=== PATIENT | male | born 1970 | race African-American/Black ===

== ENCOUNTER 2017-02-05 16:50 | Emergency (ER) | payer MEDICARE ==
[~2017-02-05] VITALS: Ht 175.3 cm; Wt 117.9 kg
--- NOTE | 2017-02-05 16:53 | NUR ---
PT SELF PRESENTS TO ED: SOB x 3 DAYS. AMBULATORY. DENIES ANY PAIN. AWAITING MD ORDER
[2017-02-05] MEDS ORDERED: predniSONE 20 MG TABLET ONE (17:04)
[2017-02-05] MEDS ORDERED: IPRATROPIUM NEB FS 0.5 MG/2.5 ML AMPUL.NEB ONE (17:05)
[2017-02-05] MEDS ORDERED: ALBUTEROL FS 2.5 MG/3 ML VIAL.NEB ONE (17:05)
[2017-02-05] MEDS ORDERED: predniSONE 20 MG TABLET PO ONE (17:30)
[2017-02-05] MEDS ORDERED: ALBUTEROL FS 2.5 MG/3 ML VIAL.NEB CONTNEB ONE (17:30)
[2017-02-05] MEDS ORDERED: IPRATROPIUM NEB FS 0.5 MG/2.5 ML AMPUL.NEB NEB ONE (17:30)
--- NOTE | 2017-02-05 18:12 | NUR ---
Patient discharged to home in stable condition. Written and verbal after care instructions given. Patient verbalizes understanding of instruction.
[2017-02-05 18:14] VITALS: BP 124/80
== END 2017-02-05 18:15 | disposition home or self-care (01) ==
LOC: ER 16:55
DX: J45.901 Unspecified asthma with (acute) exacerbation (principal); Z90.89 Acquired absence of other organs; E66.9 Obesity, unspecified
CPT/HCPCS: 94644; 99285; A4606; J7512; Z7610

== ENCOUNTER 2020-12-13 08:50 | Inpatient (IN) | payer BC, MEDICARE ==
[~2020-12-13] VITALS: Ht 175.3 cm; Wt 125.3 kg
--- NOTE | 2020-12-13 08:50 | NUR ---
PT BIBRA 878 FROM HOME C/O BODY PAIN AND HEADACHE SINCE YESTERDAY. PT IS AAOX4, NOT IN RESPIRATORY DISTRESS, HOOKED TO [employer] SYSTEMS ENGINEER, KEPT RESTED AND COMFORTABLE. WILL CONTINUE TO MONITOR.
--- NOTE | 2020-12-13 09:14 | NUR ---
SEEN AND EXAMINED BY .
--- NOTE | 2020-12-13 09:15 | NUR ---
IV LINE ESTABLISHED BLOOD DRAWN AND SENT TO LAB.
--- NOTE | 2020-12-13 09:39 | NUR ---
URINE SPECIMEN COLLECTED AND SENT TO LAB.
[2020-12-13 09:50] LABS: BILIRUBIN,URINE NEGATIVE (NEGATIVE); COLOR,URINE YELLOW (YELLOW); LEUKOCYTE ESTERASE ,URINE NEGATIVE (NEGATIVE); NITRITE, URINE POSITIVE (NEGATIVE); PH,URINE 7.5 (5.0-8.0); PROTEIN,URINE TRACE mg/dl (NEGATIVE); UGLUCOSE NEGATIVE (NEGATIVE); UROBILINOGEN,URINE 0.2 EU/dL (0.2)
[2020-12-13 09:51] LABS: BASOPHILS # (AUTO) 0.2 /CMM (0.0-0.2); BASOPHILS % (AUTO) 2.2 % (0.0-2.0); EOSINOPHILS % (AUTO) 0.9 % (0.0-6.0); HEMATOCRIT 47 % (39-51); HEMOGLOBIN 15.4 g/dL (13.5-17.5); LYMPHOCYTES # (AUTO) 2.1 /CMM (0.8-4.8); LYMPHOCYTES % (AUTO) 27.2 % (20.0-44.0); MEAN CORPUSCULAR HGB CONC 33 g/dl (31.0-36.0); MEAN CORPUSCULAR VOLUME 91 fL (80-96); MONOCYTES # (AUTO) 0.6 /CMM (0.1-1.30); MONOCYTES % (AUTO) 7.5 % (2.0-12.0); NEUTROPHILS # (AUTO) 4.8 /CMM (1.8-8.9); NEUTROPHILS % (AUTO) 62.2 % (43.0-81.0); PLATELET COUNT (AUTO) 270 /CMM (150-450); RED BLOOD CELL COUNT(AUTO) 5.14 MIL/uL (4.5-6.0); WHITE BLOOD COUNT (AUTO) 7.8 K/uL (4.3-11.0)
[2020-12-13] MEDS ORDERED: MORPHINE SULFATE INJ 4 MG/ML DISP.SYRIN ONE (09:53)
[2020-12-13] MEDS ORDERED: ONDANSETRON HCL/PF 4 MG/2 ML VIAL ONE (09:53)
--- NOTE | 2020-12-13 09:55 | NUR ---
PT IS WHEELED TO CT SCAN VIA [facility].
[2020-12-13] MEDS ORDERED: MORPHINE SULFATE INJ 2 MG/ML DISP.SYRIN IV ONE (10:00)
[2020-12-13] MEDS ORDERED: ONDANSETRON HCL/PF - ER 4 MG/2 ML VIAL IV ONE (10:00)
[2020-12-13 10:03] LABS: CALCIUM, SERUM 9.1 mg/dL (8.5-10.1); CARBON DIOXIDE 27 mmol/L (21-32); CHLORIDE 103 mmol/L (98-107); CREATININE 1.2 mg/dL (0.6-1.3); GLUCOSE 119 mg/dL (74-106); SODIUM SERUM 140 mmol/L (136-145); UREA NITROGEN, BLOOD 12 mg/dL (7-18)
[2020-12-13 10:04] LABS: RBC,URINE NONE SEEN /HPF (0-2); WBC,URINE 0-2 /HPF (0-3)
[2020-12-13 10:06] LABS: BACTERIA,URINE Few /HPF (None Seen); SQUAMOUS EPITHELIAL CELL,UR Few /HPF (None Seen)
[2020-12-13 10:09] LABS: ALANINE AMINOTRANSFERASE 35 U/L (12-78); ALBUMIN 3.9 g/dL (3.4-5.0); ALKALINE PHOSPHATASE 55 U/L (46-116); ASPARTATE AMINOTRANSFERASE 25 U/L (15-37); BILIRUBIN,DIRECT 0.2 mg/dL (0.0-0.2); BILIRUBIN,TOTAL 1.4 mg/dL (0.2-1.0); TOTAL PROTEIN, SERUM 7.6 g/dL (6.4-8.2)
[2020-12-13] MEDS ORDERED: BUDE10.22 IH (10:18)
[2020-12-13] MEDS ORDERED: PRED10TA PO (10:18)
[2020-12-13] MEDS ORDERED: ALBUT2 CONTNEB (10:18)
--- NOTE | 2020-12-13 11:15 | NUR ---
LAB CALLED PT COVID NEGATIVE (-).
[2020-12-13] MEDS ORDERED: METOCLOPRAMIDE HCL 10 MG/2 ML VIAL IV ONE ×2 (13:00→18:30)
[2020-12-13] MEDS ORDERED: diphenhydrAMINE HCL 50 MG/ML VIAL IV ONE ×2 (13:00→18:30)
[2020-12-13] MEDS ORDERED: diphenhydrAMINE HCL 50 MG/ML VIAL ONE (13:09)
[2020-12-13] MEDS ORDERED: METOCLOPRAMIDE HCL 10 MG/2 ML VIAL ONE (13:09)
--- NOTE | 2020-12-13 14:00 | NUR ---
MS SULTANA NOTE RECEIVED REPORT FROM MACRINA Addendum: 12/13/20 at 1904 by BETH PINTO RN 1600*
--- NOTE | 2020-12-13 16:00 | NUR ---
REPORT GIVEN TO KAYY CAMPOS FOR STONE.
--- NOTE | 2020-12-13 17:20 | NUR ---
MS RN NOTE PATIENT WAS BROUGHT VIA GURNEY. A/O X4. AMBULATORY. PATIENT SHOWS SOB. PUT HIM ON NC AT 2 LPM FOR 02 SUPPORT. PATIENT HAS NAUSEA, VERBALIZING HEADACHE, LOW GRADE FEVER. ONE-TIME MEDS GIVEN PER DENTAL AIDE RADHA MAGUIRE. IV ACCESS ON L HAND 20 G, INTACT AND PATENT. PT'S INITIAL AND PHYSICAL ASSESSMENT DONE. SAFETY MEASURES MAINTAINED. BED IN LOWEST POSITION, BRKAES LOCKED SIDE RAILS UP X2. CALL LIGHT WITHIN REACH. WILL ENDORSE CONTINUITY OF CARE TO ONCOMING SHIFT. VS BP 111/65 R 98 R 18 T 100.3 A02 99%
[2020-12-13] MEDS ORDERED: ZOLPIDEM TARTRATE 5 MG TABLET PO PRN (18:30)
[2020-12-13] MEDS ORDERED: ALBUTEROL HALF STRENGTH 1.25 MG/3 ML VIAL.NEB NEB PRN (18:30)
[2020-12-13] MEDS ORDERED: KETOROLAC TROMETHAMINE INJ 30 MG/ML VIAL IV ONE (18:30)
[2020-12-13] MEDS ORDERED: HYDROCODONE/APAP 5/325MG TABLET PO PRN (18:30)
[2020-12-13] MEDS ORDERED: MAGNESIUM HYDROXIDE 30 ML UDC PO PRN (18:30)
[2020-12-13] MEDS ORDERED: ONDANSETRON HCL/PF 4 MG/2 ML VIAL IVP PRN (18:30)
[2020-12-13] MEDS: ACETAMINOPHEN 325 MG TABLET PO PRN (18:54)
--- NOTE | 2020-12-13 19:00 | NUR ---
RECEIVED IN BED ASLEEP HIGH FOWFABIO POSITION 02 2L RESP EVEN AND UNLABORED CALL LIGHT WITHIN HIS REACH WHEN NAME SPOKEN HE AWAKENS AND ASKED FOR FOOD
[2020-12-13 20:00] VITALS: BP 101/67
[2020-12-13] MEDS: ENOXAPARIN SODIUM 40 MG/0.4 ML DISP.SYRIN SQ SCH (20:47)
[2020-12-13] MEDS: IV NS 0.9% 1,000 ML IV PRN (20:50)
[2020-12-13 22:30] VITALS: BP 101/67
--- NOTE | 2020-12-14 03:56 | NUR ---
ENDING NOTES: SLEPT THRU THE NIGHT. USING HIS OWN MACHINE FOR HIS SLEPT APNEA.. HS SNACK CONSUMED 100% NO C/O H/A PAIN THIA 12 HOURS. UP TO THE BATHROOM INDEPENDENTLY, STEADY ON HIS LEGS
[2020-12-14] MEDS: IV NS 0.9% 1,000 ML IV PRN ×2 (05:28→19:48)
[2020-12-14 06:38] LABS: BASOPHILS # (AUTO) 0.1 /CMM (0.0-0.2); BASOPHILS % (AUTO) 0.8 % (0.0-2.0); EOSINOPHILS % (AUTO) 1.2 % (0.0-6.0); HEMATOCRIT 45 % (39-51); HEMOGLOBIN 14.9 g/dL (13.5-17.5); LYMPHOCYTES # (AUTO) 2.3 /CMM (0.8-4.8); LYMPHOCYTES % (AUTO) 31.2 % (20.0-44.0); MEAN CORPUSCULAR HGB CONC 33 g/dl (31.0-36.0); MEAN CORPUSCULAR VOLUME 90 fL (80-96); MONOCYTES # (AUTO) 0.9 /CMM (0.1-1.30); MONOCYTES % (AUTO) 12.7 % (2.0-12.0); NEUTROPHILS # (AUTO) 3.9 /CMM (1.8-8.9); NEUTROPHILS % (AUTO) 54.1 % (43.0-81.0); PLATELET COUNT (AUTO) 221 /CMM (150-450); RED BLOOD CELL COUNT(AUTO) 4.95 MIL/uL (4.5-6.0); WHITE BLOOD COUNT (AUTO) 7.3 K/uL (4.3-11.0)
[2020-12-14 07:21] LABS: CALCIUM, SERUM 8.6 mg/dL (8.5-10.1); CREATININE 1.2 mg/dL (0.6-1.3); MAGNESIUM 2.2 mg/dL (1.8-2.4); PHOSPHORUS 3.5 mg/dL (2.5-4.9); POTASSIUM 3.6 mmol/L (3.5-5.1)
--- NOTE | 2020-12-14 07:30 | NUR ---
MS STEPHENSON RN NOTES PATIENT RECEIVED AWAKE IN BED RESTING COMFORTABLY. ALERT AND ORIENTED X 4. ON ROOM AIR WITH NO SIGN OF RESPIRATORY DISTRESS AT THIS TIME WITH EVEN NON-LABORED BREATHING. PATIENT SKIN WARM AND DRY TO TOUCH. IV ACCESS INTACT AND PATENT INFUSING IV FLUIDS AT THIS TIME. PATIENT DENIES PAIN AT THIS TIME. SAFETY PRECAUTIONS IMPLEMENTED WITH BED LOCKED, BILATERAL SIDE RAILS UP, BED IN THE LOWEST POSITION AND CALL LIGHT WITHIN EASY. WILL CONTINUE TO MONITOR PATIENT.
[2020-12-14 08:00] VITALS: BP 127/79
[2020-12-14] MEDS: ACETAMINOPHEN 325 MG TABLET PO PRN ×2 (11:12→17:18)
[2020-12-14] MEDS ORDERED: POLYETHYLENE GLYCOL 3350 17 GM POWD.PACK PO ONE (12:30)
[2020-12-14] MEDS ORDERED: KETOROLAC TROMETHAMINE INJ 30 MG/ML VIAL IV PRN (12:30)
[2020-12-14 15:53] VITALS: BP 141/85
[2020-12-14 16:05] VITALS: BP 141/85
--- NOTE | 2020-12-14 18:22 | NUR ---
MS RN NOTES PATIENT IN BED RESTING COMFORTABLY ALERT AND ORIENTED X 4. MET ALL OF PATIENT'S NEEDS ON ROOM AIR WITH NO SIGN OF RESPIRATORY DISTRESS AT THIS TIME WITH EVEN NON-LABORED BREATHING, and NO COMPLAINTS OF SOB. PATIENT SKIN KEPT CLEAN, WARM AND DRY TO TOUCH. IV ACCESS INTACT AND PATENT INFUSING IV FLUIDS AT THIS TIME. PATIENT DENIES PAIN AT THIS TIME. SAFETY PRECAUTIONS IMPLEMENTED WITH BED LOCKED, BILATERAL SIDE RAILS UP, BED IN THE LOWEST POSITION AND CALL LIGHT WITHIN EASY. WILL ENDORSE PLAN OF CARE TO UPCOMING RN.
--- NOTE | 2020-12-14 19:10 | NUR ---
RN ms opening notes Received Pt from morning nurse. Pt is laying in bed comfortably watching TV. Pt is alert and orientedX4. Respiration is normal in room air. NO SOB. No S/S of distress noted. IV site at R wrists# 20 is clean, intact and infusing well NS @ 100 ml/hr. Pt is able to ambulate with a steady gait. Safety precautions is maintained. Bed at low position, brakes locked, side rails upX2, hob elevated and call light is within reach. Will continue to monitor.
[2020-12-14] MEDS: ENOXAPARIN SODIUM 40 MG/0.4 ML DISP.SYRIN SQ SCH (19:52)
[2020-12-14 20:00] VITALS: BP 120/66
[2020-12-14] MEDS: FLUTICASONE/VILANTEROL 1 EACH BLST.W.DEV IH SCH (20:00)
--- NOTE | 2020-12-14 20:02 | NUR ---
RN notes Pt refused Breo ellipta inhaler. Explained risks and benefits. Pt keep refusing. Offered multiple times. Pt stated "I use Cymbacort." and I don't have trouble breathing. Pt O2 sat in room air is 97%. Will continue to monitor.
[2020-12-14 20:04] VITALS: BP 120/66
--- NOTE | 2020-12-15 06:45 | NUR ---
RN ms closing notes Pt is resting in bed comfortably. Pt is alert and orientedX4. Respiration is normal. NO SOB. No S/S of distress noted. Vs is stable. afebrile. IV site at R wrists# 20 is clean, intact and SL. Pt refused IV fluid at this time. Explained risks and benefits. Kept Pt clean, dry and comfortable. Safety precautions is maintained. Bed at low position, brakes locked, side rails upX2, hob elevated and call light is within reach. Will endorse to morning nurse for STONE.
--- NOTE | 2020-12-15 07:22 | NUR ---
MS RN OPENING NOTES RECEIVED PT AWAKE IN BED WITH BIPAP ON, TOLERATING WELL, BREATHING EVEN AND UNLABORED, NO SOB NOTED. PT IS A/O X4. ABLE TO MAKE NEEDS KNOWN, DENIES PAIN OR ANY DISCOMFORTS AT THIS TIME. IV ACCESS ON RIGHT WRIST #20 INTACT AND PATENT, PT REFUSED IVF AT THIS TIME. SAFETY MEASURES IN PLACE: BED IN LOWEST LOCKED POSITION WITH SR UP X2. CALL LIGHT W/I REACH. WILL CONTINUE TO MONITOR PT ACCORDINGLY
[2020-12-15 07:57] VITALS: BP 133/83
[2020-12-15] MEDS: FLUTICASONE/VILANTEROL 1 EACH BLST.W.DEV IH SCH (08:19)
--- NOTE | 2020-12-15 09:19 | NUR ---
RN NOTES FLU VACCINE ADMINISTERED TO LEFT DELTOID PER REQUEST FROM PT. WILL MONITOR FOR ANY S/E AND ADVERSE REACTIONS.
[2020-12-15] MEDS ORDERED: INFLUENZA VACCINE 2020-21 0.5 ML DISP.SYRIN IM ONE (10:00)
[2020-12-15 10:10] LABS: CALCIUM, SERUM 8.2 mg/dL (8.5-10.1); CREATININE 1.2 mg/dL (0.6-1.3); MAGNESIUM 2.3 mg/dL (1.8-2.4); POTASSIUM 3.6 mmol/L (3.5-5.1)
[2020-12-15 10:17] LABS: BASOPHILS % (AUTO) 0.7 % (0.0-2.0); EOSINOPHILS % (AUTO) 4.1 % (0.0-6.0); HEMATOCRIT 46 % (39-51); HEMOGLOBIN 15.3 g/dL (13.5-17.5); LYMPHOCYTES # (AUTO) 2.1 /CMM (0.8-4.8); LYMPHOCYTES % (AUTO) 33.6 % (20.0-44.0); MEAN CORPUSCULAR HGB CONC 34 g/dl (31.0-36.0); MEAN CORPUSCULAR VOLUME 90 fL (80-96); MONOCYTES # (AUTO) 0.7 /CMM (0.1-1.30); MONOCYTES % (AUTO) 11.8 % (2.0-12.0); NEUTROPHILS # (AUTO) 3.2 /CMM (1.8-8.9); NEUTROPHILS % (AUTO) 49.8 % (43.0-81.0); PLATELET COUNT (AUTO) 248 /CMM (150-450); RED BLOOD CELL COUNT(AUTO) 5.08 MIL/uL (4.5-6.0); WHITE BLOOD COUNT (AUTO) 6.3 K/uL (4.3-11.0)
--- NOTE | 2020-12-15 14:40 | NUR ---
RN DISCHARGED NOTES PATIENT DISCHARGED HOME IN STABLE CONDITION. A/O X4. ABLE TO MAKE NEEDS KNOWN. V/S TAKEN, STABLE AND RECORDED. ALL BELONGING ACCOUNTED FOR AND SIGNED FORM. IV ACCESS ON RIGHT WRIST G#20 REMOVED, NO BLEEDING NOTED, DRY DRESSING APPLIED AT SITE. NAME ARMBAND REMOVED. HEALTH TEACHINGS /DISCHARGE INSTRUCTIONS GIVEN TO PT AND VERBALIZED UNDERSTANDING. EXIT FOLDER HANDED TO PT. PT LEFT UNIT AT 1435 VIA WHEELCHAIR ACCOMPANIED BY MEGAN PRADO TO [facility]. PT'S IN THE LOBBY AND WILL DRIVE PT'S HOME. CHARGE NURSE AWARE OF DISCHARGE.
== END 2020-12-15 14:20 | disposition home or self-care (01) | DRG 866 ==
LOC: ER 09:01 → MED 15:43
PROVIDERS: ADMIT Nurse Practitioner Acute Care; ATTEND Nurse Practitioner Acute Care
DX: B34.9 Viral infection, unspecified (principal); M62.82 Rhabdomyolysis; D68.69 Other thrombophilia; Z68.41 Body mass index [BMI] 40.0-44.9, adult; K57.30 Diverticulosis of large intestine without perforation or abscess without bleeding; E11.9 Type 2 diabetes mellitus without complications; E66.01 Morbid (severe) obesity due to excess calories; G47.30 Sleep apnea, unspecified; I10 Essential (primary) hypertension; Z20.822 Contact with and (suspected) exposure to COVID-19; J45.909 Unspecified asthma, uncomplicated; R51.9 Headache, unspecified
CPT/HCPCS: 36415; 70450-TC; 71045-TC; 80048-TC; 80061-TC; 80076-TC; 81001; 82550-TC; 83605-TC; 83735-TC; 84100-TC; 84484-TC; 85025-TC; 85730-TC; 87040-TC; 87081-TC; 87086-TC; 87806; C9803; G0378; J1200; J1650; J1885; J2270; J2405; J2765; J7030; Q2036; U0003